=== PATIENT | male | born 1995 | race Caucasian/White ===

== ENCOUNTER 2017-12-02 11:59 | Emergency (ER) | payer BC, OTHER ==
[~2017-12-02] VITALS: Ht 175.3 cm; Wt 59.4 kg
[~2017-12-02 11:59] MED LIST: Bactrim Ds Tab1 EACH PO; Benadryl 50 mg50 MG PO; CODACEE120 PO; IBUP400; Pepcid20 MG PO; Prednisone20 MG PO
[2017-12-02] MEDS ORDERED: OXYM.05NI (13:29)
[2017-12-02] MEDS ORDERED: Hydrocodone-Ap1 EA23 PO (13:29)
[2017-12-02] MEDS ORDERED: IBUP600 PO (13:29)
== END 2017-12-02 13:36 | disposition home or self-care (01) ==
LOC: ER 11:59
DX: S02.2XXA Fracture of nasal bones, initial encounter for closed fracture (principal); F17.200 Nicotine dependence, unspecified, uncomplicated; Y04.2XXA Assault by strike against or bumped into by another person, initial encounter
CPT/HCPCS: 70160; 99283

== ENCOUNTER 2022-08-09 21:26 | Emergency (ER) | payer OTHER ==
[~2022-08-09] VITALS: Ht 172.7 cm; Wt 59.0 kg
[~2022-08-09 21:26] MED LIST changes: +Hydrocodone-Ap1 EA23 PO; +IBUP600 PO; +OXYM.05NI
== END 2022-08-09 22:24 | disposition home or self-care (01) ==
LOC: ER 21:26
DX: B35.1 Tinea unguium (principal); F17.200 Nicotine dependence, unspecified, uncomplicated; Z59.00 Homelessness unspecified
CPT/HCPCS: 99282

== ENCOUNTER 2024-04-17 15:45 | Emergency (ER) | payer OTHER ==
[~2024-04-17] VITALS: Ht 172.7 cm; Wt 57.1 kg
[2024-04-17 15:58] VITALS: BP 124/76
[2024-04-17] MEDS ORDERED: Ketorolac Tromethamine 10 MG Tab PO ONE (18:45)
== END 2024-04-17 18:52 | disposition home or self-care (01) ==
LOC: ER 15:45
DX: J06.9 Acute upper respiratory infection, unspecified (principal); F17.200 Nicotine dependence, unspecified, uncomplicated; Z79.899 Other long term (current) drug therapy
CPT/HCPCS: 87081; 87430; 99283; A9270